=== PATIENT | male | born 1950 | race African-American/Black ===

== ENCOUNTER 2016-09-23 08:08 | Inpatient (IN) | payer MEDICARE, OTHER ==
[~2016-09-23] VITALS: Ht 193 cm; Wt 91.7 kg
[~2016-09-23 08:08] MED LIST: AMLO-511 PO; ASPI-556 PO; ATOR20TA86 PO; LISI-662 PO; METO25 PO
[2016-09-23] MEDS ORDERED: ASPIRIN 81 MG CHEWABLE TABLET PO ONE (08:45)
[2016-09-23 08:49] LABS: HEMATOCRIT 37.2 % (41-53); HEMOGLOBIN 12.3 g/dL (13.5-17.5); MEAN CORPUSCULAR HEMOGLOBIN 26.9 pg (26.0-34.0); MEAN CORPUSCULAR HGB CONC 33.1 G/dL (31.0-37.0); MEAN CORPUSCULAR VOLUME 81 fL (80-100); PLATELET COUNT (AUTO) 133 K/uL (150-450); RED BLOOD CELL COUNT(AUTO) 4.57 MIL/uL (4.50-5.90); WHITE BLOOD COUNT (AUTO) 2.8 K/uL (4.5-11.0)
[2016-09-23 08:55] LABS: ANION GAP 8 mmol/L (8-16); CALCIUM, TOTAL 8.8 mg/dL (8.8-10.5); CARBON DIOXIDE 27 mmol/L (22-29); CHLORIDE 106 mmol/L (98-107); CREATININE 1.25 mg/dL (0.60-1.30); GLOMERULAR FILTR. RATE CALC > 60 mL/min (>60); POTASSIUM 3.9 mmol/L (3.5-5.1); SODIUM SERUM 141 mmol/L (136-145); UREA NITROGEN, BLOOD 16 mg/dL (7-18)
[2016-09-23 09:12] LABS: BAND NEUTROPHILS % (MANUAL) 2 % (1-5); LYMPHOCYTES % (MANUAL) 42 % (22-44); REACTIVE LYMPHOCYTES 4 % (0-0); TOTAL CELLS COUNTED 100
[2016-09-23 09:14] LABS: B-TYPE NATRIURETIC PEPTIDE 42 pg/mL (0-100)
[2016-09-23] MEDS ORDERED: NITROGLYCERIN 0.4 MG SUBLINGUAL TABLET #25 SL ONE (09:15)
[2016-09-23] MEDS ORDERED: NITROGLYCERIN 2% (1 GM=INCH) PACKET TP ONE (09:15)
[2016-09-23 09:19] LABS: ALANINE AMINOTRANSFERASE 103 U/L (12-78); ALBUMIN 3.5 g/dL (3.4-5.0); ASPARTATE AMINOTRANSFERASE 72 U/L (15-37); BILIRUBIN,TOTAL 0.5 mg/dL (0.1-1.0); CREATINE KINASE MB 4.7 ng/mL (0-5); CREATINE KINASE, TOTAL 379 U/L (39-308)
[2016-09-23 09:23] LABS: PROTHROMBIN TIME 10.9 SEC (9.4-11.6)
[2016-09-23 10:06] LABS: APPEARANCE,URINE CLEAR (CLEAR); GLUCOSE, URINE (UA) NEGATIVE (NEGATIVE); KETONES,URINE NEGATIVE (NEGATIVE); LEUKOCYTE ESTERASE ,URINE NEGATIVE (NEGATIVE); OCCULT BLOOD,URINE NEGATIVE (NEGATIVE); PH,URINE 6.5 (5.0-8.0); PROTEIN,URINE NEGATIVE (NEGATIVE)
[2016-09-23 10:07] LABS: ADD UA MICROSCOPIC NO
[2016-09-23] MEDS ORDERED: MORPHINE SULFATE 4 MG/ML SYRINGE IVP ONE (10:15)
[2016-09-23] MEDS ORDERED: ONDANSETRON HCL 4 MG/2 ML VIAL IVP ONE (10:15)
[2016-09-23] MEDS ORDERED: ONDANSETRON HCL 4 MG/2 ML VIAL IVP PRN (10:45)
[2016-09-23] MEDS ORDERED: IPRATROPIUM BROMIDE 0.5 MG/2.5 ML NEB SOLUTION NEB PRN (10:45)
[2016-09-23] MEDS ORDERED: ZOLPIDEM TARTRATE 5 MG TABLET PO PRN (10:45)
[2016-09-23] MEDS ORDERED: ALBUTEROL SULFATE 2.5 MG/0.5 ML NEB SOLUTION NEB PRN (10:45)
[2016-09-23] MEDS ORDERED: BISACODYL 10 MG RECTAL RECTAL SUPPOSITORY PR PRN (10:45)
[2016-09-23] MEDS ORDERED: ACETAMINOPHEN 325 MG TABLET PO PRN (10:45)
[2016-09-23] MEDS ORDERED: MAGNESIUM HYDROXIDE SUSPENSION 30 ML UDCUP PO PRN (10:45)
[2016-09-23 11:18] VITALS: BP 153/95
[2016-09-23] MEDS: LISINOPRIL 20 MG TABLET PO SCH (11:28)
[2016-09-23] MEDS: METOPROLOL TARTRATE 25 MG TABLET PO SCH ×2 (11:29→21:20)
[2016-09-23] MEDS: NITROGLYCERIN 2% (1 GM=INCH) PACKET TP SCH ×3 (13:43→23:09)
[2016-09-23 16:01] VITALS: BP 146/79
[2016-09-23] MEDS: MORPHINE SULFATE 2 MG/ML SYRINGE IVP PRN ×2 (17:41→22:00)
[2016-09-23 20:31] VITALS: BP 147/88
[2016-09-23] MEDS: HEPARIN SODIUM,PORCINE 5,000 UNITS/ML VIAL SQ SCH (21:19)
[2016-09-23] MEDS: ATORVASTATIN CALCIUM 20 MG TABLET PO SCH (21:20)
[2016-09-23 23:17] VITALS: BP 142/82
[2016-09-24 03:47] VITALS: BP 141/78
[2016-09-24] MEDS: NITROGLYCERIN 2% (1 GM=INCH) PACKET TP SCH ×3 (05:19→18:11)
[2016-09-24] MEDS: MORPHINE SULFATE 2 MG/ML SYRINGE IVP PRN (07:01)
[2016-09-24 07:20] VITALS: BP 136/75
[2016-09-24 07:44] LABS: HEMATOCRIT 37.4 % (41-53); HEMOGLOBIN 12.4 g/dL (13.5-17.5); MEAN CORPUSCULAR HGB CONC 33.1 G/dL (31.0-37.0); MEAN CORPUSCULAR VOLUME 81 fL (80-100); PLATELET COUNT (AUTO) 138 K/uL (150-450); RED CELL DISTRIBUTION WIDTH 13.9 % (11.5-14.5); WHITE BLOOD COUNT (AUTO) 2.8 K/uL (4.5-11.0)
[2016-09-24 08:06] LABS: ALANINE AMINOTRANSFERASE 98 U/L (12-78); ALBUMIN 3.2 g/dL (3.4-5.0); ANION GAP 7 mmol/L (8-16); ASPARTATE AMINOTRANSFERASE 67 U/L (15-37); BILIRUBIN,TOTAL 0.5 mg/dL (0.1-1.0); CALCIUM, TOTAL 9.1 mg/dL (8.8-10.5); CARBON DIOXIDE 27 mmol/L (22-29); CHLORIDE 105 mmol/L (98-107); CHOL/HDL RATIO 1.9 (4.2-7.3); CREATININE 1.27 mg/dL (0.60-1.30); GLOMERULAR FILTR. RATE CALC > 60 mL/min (>60); PHOSPHORUS 3.9 mg/dL (2.5-4.9); POTASSIUM 4.4 mmol/L (3.5-5.1); SODIUM SERUM 139 mmol/L (136-145); THYROID STIMULATING HORMONE 1.77 uIU/mL (0.36-3.74); TOTAL PROTEIN, SERUM 6.7 g/dL (6.4-8.2); UREA NITROGEN, BLOOD 16 mg/dL (7-18)
[2016-09-24] MEDS: AmLODIPine BESYLATE 5 MG TABLET PO SCH (08:22)
[2016-09-24] MEDS: ASPIRIN 81 MG EC TABLET PO SCH (08:22)
[2016-09-24] MEDS: METOPROLOL TARTRATE 25 MG TABLET PO SCH ×2 (08:22→20:07)
[2016-09-24] MEDS: PANTOPRAZOLE SODIUM 40 MG DR TABLET PO SCH (08:22)
[2016-09-24] MEDS: HEPARIN SODIUM,PORCINE 5,000 UNITS/ML VIAL SQ SCH ×2 (08:22→20:08)
[2016-09-24] MEDS: LISINOPRIL 20 MG TABLET PO SCH (09:32)
[2016-09-24 09:38] LABS: BAND NEUTROPHILS % (MANUAL) 2 % (1-5); LYMPHOCYTES % (MANUAL) 75 % (22-44); TOTAL CELLS COUNTED 100
[2016-09-24 09:39] LABS: RBC MORPHOLOGY COMMENT NORMAL RBC MORPH
[2016-09-24 11:22] VITALS: BP 133/75
[2016-09-24] MEDS: OxyCODONE HCL/ACETAMINOPHEN 5-325 MG TABLET PO PRN ×2 (11:45→20:07)
[2016-09-24 15:33] VITALS: BP 146/74
[2016-09-24 19:36] VITALS: BP 138/79
[2016-09-24] MEDS: ATORVASTATIN CALCIUM 20 MG TABLET PO SCH (20:07)
[2016-09-24 23:44] VITALS: BP 143/79
[2016-09-25] VITALS (8 sets, daily range): BP systolic 138–173; BP diastolic 63–99
[2016-09-25] MEDS: NITROGLYCERIN 2% (1 GM=INCH) PACKET TP SCH ×4 (00:04→19:00)
[2016-09-25] MEDS: OxyCODONE HCL/ACETAMINOPHEN 5-325 MG TABLET PO PRN ×2 (08:10→15:07)
[2016-09-25 08:29] LABS: HEPATITIS Bs ANTIGEN SCREEN P Negative (Negative); HEPATITIS C AB SCREEN >11.0 s/co ratio (0.0-0.9)
[2016-09-25] MEDS ORDERED: HEPARIN SODIUM 1000 UNITS/NS 1,000 ML ONE (08:34)
[2016-09-25] MEDS ORDERED: LIDOCAINE HCL/PF 1% 30 ML VIAL ONE (08:34)
[2016-09-25] MEDS ORDERED: IOHEXOL 300 MG/ML 150 ML VIAL ONE (08:34)
[2016-09-25] MEDS: ASPIRIN 81 MG EC TABLET PO SCH (09:00)
[2016-09-25] MEDS: HEPARIN SODIUM,PORCINE 5,000 UNITS/ML VIAL SQ SCH (09:00)
[2016-09-25] MEDS ORDERED: NITROGLYCERIN 50 MG/D5% WATER 250 ML ONE (09:07)
[2016-09-25] MEDS ORDERED: VERAPAMIL HCL 2.5 MG/ML 2 ML VIAL ONE (09:07)
[2016-09-25] MEDS ORDERED: FentaNYL CITRATE-PF 100 MCG/2 ML VIAL ONE (09:37)
[2016-09-25] MEDS ORDERED: MIDAZOLAM HCL 2 MG/2 ML VIAL ONE (09:37)
[2016-09-25] MEDS ORDERED: HEPARIN SODIUM 1000 UNITS/NS 1,000 ML IARTER ONE (09:53)
[2016-09-25] MEDS ORDERED: SODIUM CHLORIDE 0.9% 500 ML IV ONE (09:53)
[2016-09-25] MEDS ORDERED: FentaNYL CITRATE-PF 100 MCG/2 ML VIAL IVP ONE (10:00)
[2016-09-25] MEDS ORDERED: NITROGLYCERIN/D5W 50 MG/250 ML IV BOTTLE IARTER ONE (10:00)
[2016-09-25] MEDS ORDERED: MIDAZOLAM HCL 2 MG/2 ML VIAL IVP ONE (10:00)
[2016-09-25] MEDS ORDERED: HEPARIN SODIUM,PORCINE 5,000 UNITS/ML VIAL IVP ONE (10:00)
[2016-09-25] MEDS ORDERED: VERAPAMIL HCL 2.5 MG/ML 2 ML VIAL IARTER ONE (10:00)
[2016-09-25] MEDS ORDERED: IOHEXOL 300 MG/ML 150 ML VIAL IARTER ONE (10:00)
[2016-09-25] MEDS ORDERED: LIDOCAINE HCL/PF 1% 30 ML VIAL INJ ONE (10:15)
[2016-09-25] MEDS: AmLODIPine BESYLATE 5 MG TABLET PO SCH (11:15)
[2016-09-25] MEDS: PANTOPRAZOLE SODIUM 40 MG DR TABLET PO SCH (11:15)
[2016-09-25] MEDS: LISINOPRIL 20 MG TABLET PO SCH (11:15)
[2016-09-25] MEDS: METOPROLOL TARTRATE 25 MG TABLET PO SCH (11:16)
== END 2016-09-25 19:45 | disposition home or self-care (01) | DRG 287 ==
LOC: EMS 08:10 → 5S 09:37
PROVIDERS: ADMIT Internal Medicine; ATTEND Internal Medicine
PROC: 4A023N7 Measurement of Cardiac Sampling and Pressure, Left Heart, Percutaneous Approach (ICD-10-PCS; principal; 2016-09-25)
PROC: B2111ZZ Fluoroscopy of Multiple Coronary Arteries using Low Osmolar Contrast (ICD-10-PCS; 2016-09-25)
PROC: B2151ZZ Fluoroscopy of Left Heart using Low Osmolar Contrast (ICD-10-PCS; 2016-09-25)
DX: I25.10 Atherosclerotic heart disease of native coronary artery without angina pectoris (principal); I11.9 Hypertensive heart disease without heart failure; J44.9 Chronic obstructive pulmonary disease, unspecified; E78.5 Hyperlipidemia, unspecified; F17.210 Nicotine dependence, cigarettes, uncomplicated; F32.9 Major depressive disorder, single episode, unspecified; B19.20 Unspecified viral hepatitis C without hepatic coma; Z90.49 Acquired absence of other specified parts of digestive tract; Z71.6 Tobacco abuse counseling; Z88.0 Allergy status to penicillin; Z79.82 Long term (current) use of aspirin; Z79.899 Other long term (current) drug therapy; Z86.718 Personal history of other venous thrombosis and embolism
CPT/HCPCS: 80074; 82306; 83735; 84100; 84443; 93005; 96374; 96375; 99285; J1644; J2250; J2270; J2405; J3010; J3490; Q9967

== ENCOUNTER 2016-09-26 20:18 | Emergency (ER) | payer MEDICARE, OTHER ==
[~2016-09-26] VITALS: Ht 193 cm; Wt 91.5 kg
[2016-09-26 20:50] LABS: BASOPHILS % (AUTO) 0.5 % (0.0-2.0); EOSINOPHILS % (AUTO) 2.3 % (1.0-6.0); HEMATOCRIT 38.6 % (41-53); HEMOGLOBIN 12.8 g/dL (13.5-17.5); LYMPHOCYTES # (AUTO) 1.3 K/uL (1.0-4.8); LYMPHOCYTES % (AUTO) 37.6 % (22.0-44.0); MEAN CORPUSCULAR HGB CONC 33.3 G/dL (31.0-37.0); MEAN CORPUSCULAR VOLUME 81 fL (80-100); MONOCYTES # (AUTO) 0.6 K/uL (0.1-1.0); MONOCYTES % (AUTO) 16.5 % (2.0-9.0); NEUTROPHILS # (AUTO) 1.4 K/uL (1.8-7.7); NEUTROPHILS % (AUTO) 43.1 % (40.0-70.0); PLATELET COUNT (AUTO) 146 K/uL (150-450); RED BLOOD CELL COUNT(AUTO) 4.76 MIL/uL (4.50-5.90); RED CELL DISTRIBUTION WIDTH 13.7 % (11.5-14.5); WHITE BLOOD COUNT (AUTO) 3.4 K/uL (4.5-11.0)
[2016-09-26 21:11] LABS: ANION GAP 8 mmol/L (8-16); CALCIUM, TOTAL 9.6 mg/dL (8.8-10.5); CARBON DIOXIDE 28 mmol/L (22-29); CHLORIDE 104 mmol/L (98-107); CREATININE 1.42 mg/dL (0.60-1.30); GLOMERULAR FILTR. RATE CALC 60 mL/min (>60); POTASSIUM 4.1 mmol/L (3.5-5.1); SODIUM SERUM 140 mmol/L (136-145); UREA NITROGEN, BLOOD 19 mg/dL (7-18)
[2016-09-26 21:36] LABS: ALANINE AMINOTRANSFERASE 111 U/L (12-78); ALBUMIN 3.9 g/dL (3.4-5.0); ASPARTATE AMINOTRANSFERASE 69 U/L (15-37); BILIRUBIN,TOTAL 0.4 mg/dL (0.1-1.0); CREATINE KINASE, TOTAL 323 U/L (39-308); TOTAL PROTEIN, SERUM 7.7 g/dL (6.4-8.2)
[2016-09-26 22:00] LABS: B-TYPE NATRIURETIC PEPTIDE 44 pg/mL (0-100)
[2016-09-26 22:02] LABS: CREATINE KINASE MB 3.9 ng/mL (0-5)
[2016-09-26 22:07] LABS: RBC MORPHOLOGY COMMENT NORMAL RBC MORPH
[2016-09-26 22:36] LABS: PROTHROMBIN TIME 10.6 SEC (9.4-11.6)
[2016-09-26 22:57] LABS: APPEARANCE,URINE CLEAR (CLEAR); GLUCOSE, URINE (UA) NEGATIVE (NEGATIVE); KETONES,URINE NEGATIVE (NEGATIVE); LEUKOCYTE ESTERASE ,URINE NEGATIVE (NEGATIVE); OCCULT BLOOD,URINE NEGATIVE (NEGATIVE); PH,URINE 6.5 (5.0-8.0); PROTEIN,URINE NEGATIVE (NEGATIVE)
[2016-09-26 23:18] LABS: ADD UA MICROSCOPIC NO
[2016-09-26] MEDS ORDERED: NITROGLYCERIN 2% (1 GM=INCH) PACKET TP ONE (23:30)
[2016-09-26] MEDS ORDERED: MORPHINE SULFATE 4 MG/ML SYRINGE IVP ONE (23:30)
[2016-09-26] MEDS ORDERED: ONDANSETRON HCL 4 MG/2 ML VIAL IVP ONE (23:30)
[2016-09-27 01:15] VITALS: BP 155/74
== END 2016-09-27 02:04 | disposition home or self-care (01) ==
LOC: EMS 20:20
DX: R07.89 Other chest pain (principal); I10 Essential (primary) hypertension; J44.9 Chronic obstructive pulmonary disease, unspecified; F17.210 Nicotine dependence, cigarettes, uncomplicated; Z88.0 Allergy status to penicillin
CPT/HCPCS: 93005; 96374; 96375; 99285; J2270; J2405

== ENCOUNTER 2016-10-02 13:01 | Emergency (ER) | payer MEDICARE, OTHER ==
[~2016-10-02] VITALS: Ht 193 cm; Wt 50.0 kg
[2016-10-02 13:56] LABS: BASOPHILS % (AUTO) 1.8 % (0.0-2.0); EOSINOPHILS % (AUTO) 2.6 % (1.0-6.0); HEMATOCRIT 37.2 % (41-53); HEMOGLOBIN 12.3 g/dL (13.5-17.5); LYMPHOCYTES # (AUTO) 1.5 K/uL (1.0-4.8); LYMPHOCYTES % (AUTO) 46.5 % (22.0-44.0); MEAN CORPUSCULAR HEMOGLOBIN 27.2 pg (26.0-34.0); MEAN CORPUSCULAR HGB CONC 33.2 G/dL (31.0-37.0); MEAN CORPUSCULAR VOLUME 82 fL (80-100); MONOCYTES # (AUTO) 0.6 K/uL (0.1-1.0); MONOCYTES % (AUTO) 19.2 % (2.0-9.0); NEUTROPHILS % (AUTO) 29.9 % (40.0-70.0); PLATELET COUNT (AUTO) 154 K/uL (150-450); RED BLOOD CELL COUNT(AUTO) 4.54 MIL/uL (4.50-5.90); RED CELL DISTRIBUTION WIDTH 14.2 % (11.5-14.5); WHITE BLOOD COUNT (AUTO) 3.2 K/uL (4.5-11.0)
[2016-10-02 14:11] LABS: ANION GAP 9 mmol/L (8-16); CALCIUM, TOTAL 8.9 mg/dL (8.8-10.5); CARBON DIOXIDE 28 mmol/L (22-29); CHLORIDE 105 mmol/L (98-107); CREATININE 1.14 mg/dL (0.60-1.30); GLOMERULAR FILTR. RATE CALC > 60 mL/min (>60); POTASSIUM 4.1 mmol/L (3.5-5.1); SODIUM SERUM 142 mmol/L (136-145); UREA NITROGEN, BLOOD 21 mg/dL (7-18)
[2016-10-02 14:17] LABS: ALANINE AMINOTRANSFERASE 105 U/L (12-78); ALBUMIN 3.7 g/dL (3.4-5.0); ASPARTATE AMINOTRANSFERASE 55 U/L (15-37); BILIRUBIN,TOTAL 0.5 mg/dL (0.1-1.0); TOTAL PROTEIN, SERUM 7.4 g/dL (6.4-8.2)
[2016-10-02] MEDS ORDERED: SODIUM CHLORIDE 0.9% 100 ML ONE (15:47)
[2016-10-02] MEDS ORDERED: IOVERSOL 350 MG/ML 100 ML VIAL ONE (15:47)
[2016-10-02] MEDS ORDERED: NITROGLYCERIN 0.4 MG SUBLINGUAL TABLET #25 SL ONE (16:30)
[2016-10-02 19:05] VITALS: BP 147/79
== END 2016-10-02 19:18 | disposition home or self-care (01) ==
LOC: EMS 13:03
DX: R07.9 Chest pain, unspecified (principal); M25.531 Pain in right wrist; R74.8 Abnormal levels of other serum enzymes; J44.9 Chronic obstructive pulmonary disease, unspecified; I10 Essential (primary) hypertension; F17.210 Nicotine dependence, cigarettes, uncomplicated; Z88.0 Allergy status to penicillin; Z79.82 Long term (current) use of aspirin
CPT/HCPCS: 36415; 71010; 71275; 80053; 84484; 85025; 85379; 93005; 99285; J7050; Q9967

== ENCOUNTER 2018-06-20 15:58 | Inpatient (IN) | payer MEDICARE, OTHER ==
[~2018-06-20] VITALS: Ht 185.4 cm; Wt 80.5 kg
[2018-06-20 16:46] LABS: EOSINOPHILS % (AUTO) 0.8 % (1.0-6.0); HEMATOCRIT 44.2 % (41-53); HEMOGLOBIN 14.8 g/dL (13.5-17.5); LYMPHOCYTES # (AUTO) 1.2 K/uL (1.0-4.8); LYMPHOCYTES % (AUTO) 41.9 % (22.0-44.0); MEAN CORPUSCULAR HEMOGLOBIN 27.2 pg (26.0-34.0); MEAN CORPUSCULAR HGB CONC 33.4 G/dL (31.0-37.0); MEAN CORPUSCULAR VOLUME 81 fL (80-100); MONOCYTES # (AUTO) 0.5 K/uL (0.1-1.0); MONOCYTES % (AUTO) 17.3 % (2.0-9.0); NEUTROPHILS # (AUTO) 1.1 K/uL (1.8-7.7); PLATELET COUNT (AUTO) 133 K/uL (150-450); RED BLOOD CELL COUNT(AUTO) 5.43 MIL/uL (4.50-5.90); RED CELL DISTRIBUTION WIDTH 14.5 % (11.5-14.5)
[2018-06-20] MEDS ORDERED: AmLODIPine BESYLATE 5 MG TABLET PO ONE (17:00)
[2018-06-20 17:01] LABS: ANION GAP 5 mmol/L (8-16); CALCIUM, TOTAL 9.1 mg/dL (8.8-10.5); CARBON DIOXIDE 31 mmol/L (22-29); CHLORIDE 102 mmol/L (98-107); CREATININE 1.31 mg/dL (0.60-1.30); GLOMERULAR FILTR. RATE CALC > 60 mL/min (>60); GLUCOSE,RANDOM 94 mg/dL (70-110); SODIUM SERUM 138 mmol/L (136-145); UREA NITROGEN, BLOOD 13 mg/dL (7-18)
[2018-06-20] MEDS ORDERED: SODIUM CHLORIDE 0.9% 100 ML ONE (17:03)
[2018-06-20] MEDS ORDERED: IOVERSOL 320 MG/ML 100 ML VIAL ONE (17:03)
[2018-06-20 17:07] LABS: ALANINE AMINOTRANSFERASE 70 U/L (12-78); ALBUMIN 3.6 g/dL (3.4-5.0); ALKALINE PHOSPHATASE 109 U/L (46-116); ASPARTATE AMINOTRANSFERASE 116 U/L (15-37); TOTAL PROTEIN, SERUM 8.5 g/dL (6.4-8.2)
[2018-06-20] MEDS ORDERED: ASPIRIN 325 MG TABLET PO ONE (18:30)
[2018-06-20] MEDS ORDERED: LISINOPRIL 10 MG TABLET PO ONE (19:45)
[2018-06-20] MEDS ORDERED: 0.9% SODIUM CHLORIDE 10 ML SYRINGE IVP PRN ×2 (20:15→23:15)
[2018-06-20] MEDS ORDERED: ACETAMINOPHEN 325 MG TABLET PO PRN ×3 (20:15→23:15)
[2018-06-20] MEDS ORDERED: HydrALAZINE HCL 20 MG/ML VIAL IVP ONE ×2 (20:15→21:30)
[2018-06-20] MEDS ORDERED: ONDANSETRON HCL 4 MG/2 ML VIAL IVP PRN ×3 (20:15→23:15)
[2018-06-20] MEDS ORDERED: MORPHINE SULFATE 2 MG/ML SYRINGE IVP PRN (21:00)
[2018-06-20] MEDS ORDERED: NITROGLYCERIN 2% (1 GM=INCH) PACKET TP PRN (21:00)
[2018-06-20] MEDS ORDERED: NITROGLYCERIN 0.4 MG SUBLINGUAL TABLET #25 SL PRN (21:00)
[2018-06-20] MEDS ORDERED: ASPIRIN 325 MG TABLET PO SCH (21:00)
[2018-06-20] MEDS ORDERED: ZOLPIDEM TARTRATE 10 MG TABLET PO PRN (21:00)
[2018-06-20] MEDS: DOCUSATE SODIUM 100 MG CAPSULE PO SCH (21:39)
[2018-06-20] MEDS ORDERED: LABETALOL HCL 5 MG/ML 20 ML VIAL IVP ONE (22:00)
[2018-06-20] MEDS: METOPROLOL TARTRATE 25 MG TABLET PO SCH (22:54)
[2018-06-20] MEDS: ATORVASTATIN CALCIUM 20 MG TABLET PO SCH (22:54)
[2018-06-20 23:01] VITALS: BP 159/86
[2018-06-20] MEDS ORDERED: MAGNESIUM HYDROXIDE SUSPENSION 30 ML UDCUP PO PRN (23:15)
[2018-06-20] MEDS ORDERED: DOCUSATE SODIUM 100 MG CAPSULE PO SCH (23:15)
[2018-06-20] MEDS ORDERED: OxyCODONE HCL/ACETAMINOPHEN 5-325 MG TABLET PO PRN ×2 (23:15)
[2018-06-21] VITALS (9 sets, daily range): BP systolic 142–178; BP diastolic 82–120
[2018-06-21] MEDS ORDERED: HydrALAZINE HCL 25 MG TABLET PO PRN (00:15)
[2018-06-21 06:51] LABS: BASOPHILS % (AUTO) 0.4 % (0.0-2.0); EOSINOPHILS % (AUTO) 2.9 % (1.0-6.0); HEMATOCRIT 41.8 % (41-53); HEMOGLOBIN 14.2 g/dL (13.5-17.5); LYMPHOCYTES # (AUTO) 1.1 K/uL (1.0-4.8); LYMPHOCYTES % (AUTO) 42.5 % (22.0-44.0); MEAN CORPUSCULAR HEMOGLOBIN 27.7 pg (26.0-34.0); MEAN CORPUSCULAR HGB CONC 33.9 G/dL (31.0-37.0); MEAN CORPUSCULAR VOLUME 82 fL (80-100); MONOCYTES # (AUTO) 0.4 K/uL (0.1-1.0); MONOCYTES % (AUTO) 16.1 % (2.0-9.0); NEUTROPHILS % (AUTO) 38.1 % (40.0-70.0); PLATELET COUNT (AUTO) 127 K/uL (150-450); RED BLOOD CELL COUNT(AUTO) 5.12 MIL/uL (4.50-5.90); RED CELL DISTRIBUTION WIDTH 14.6 % (11.5-14.5)
[2018-06-21 07:14] LABS: BILIRUBIN,TOTAL 0.9 mg/dL (0.1-1.0); CALCIUM, TOTAL 8.8 mg/dL (8.8-10.5); CHOL/HDL RATIO 2.3 (4.2-7.3); CREATININE 1.54 mg/dL (0.60-1.30); POTASSIUM 3.1 mmol/L (3.5-5.1)
[2018-06-21] MEDS: METOPROLOL TARTRATE 25 MG TABLET PO SCH ×2 (08:40→19:49)
[2018-06-21] MEDS: PANTOPRAZOLE SODIUM 40 MG/VIAL IVP SCH (08:41)
[2018-06-21] MEDS: AmLODIPine BESYLATE 5 MG TABLET PO SCH (08:41)
[2018-06-21] MEDS: DOCUSATE SODIUM 100 MG CAPSULE PO SCH (08:41)
[2018-06-21] MEDS ORDERED: ASPIRIN 325 MG TABLET PO SCH (09:00)
[2018-06-21] MEDS ORDERED: LISINOPRIL 20 MG TABLET PO SCH (09:00)
[2018-06-21] MEDS ORDERED: MAGNESIUM OXIDE 400 MG TABLET PO PRN (09:30)
[2018-06-21] MEDS ORDERED: MAGNESIUM SULFATE 2 GM/WATER 50 ML IV PRN (09:30)
[2018-06-21] MEDS ORDERED: MAGNESIUM SULFATE 4 GM/WATER 100 ML IV PRN (09:30)
[2018-06-21] MEDS ORDERED: POTASSIUM CHL 10 MEQ/WATER 50 ML IV PRN (09:30)
[2018-06-21] MEDS ORDERED: POTASSIUM CHLORIDE 20 MEQ ER TABLET PO PRN (09:30)
[2018-06-21] MEDS: MULTIVITAMINS WITH MINERALS, THERAPEUTIC TABLET PO SCH (09:58)
[2018-06-21 10:09] LABS: MAGNESIUM 1.8 mg/dL (1.80-2.40)
[2018-06-21 12:23] LABS: AMPHET/METH SCREEN,URINE NEGATIVE (NEGATIVE); BARBITURATE SCREEN, URINE NEGATIVE (NEGATIVE); BENZODIAZEPINES SCREEN,URINE NEGATIVE (NEGATIVE); CANNABINOID SCREEN,URINE NEGATIVE (NEGATIVE); COCAINE SCREEN,URINE POSITIVE (NEGATIVE); METHADONE SCREEN, URINE NEGATIVE (NEGATIVE); OPIATE SCREEN,URINE NEGATIVE (NEGATIVE)
[2018-06-21 12:24] LABS: PHENCYCLIDINE SCREEN,URINE NEGATIVE (NEGATIVE)
[2018-06-21] MEDS: ATORVASTATIN CALCIUM 20 MG TABLET PO SCH (19:49)
[2018-06-22 00:04] VITALS: BP 164/97
[2018-06-22 05:13] VITALS: BP 143/97
[2018-06-22 05:39] VITALS: BP 143/97
[2018-06-22 07:45] LABS: CALCIUM, TOTAL 8.8 mg/dL (8.8-10.5); CREATININE 1.61 mg/dL (0.60-1.30); MAGNESIUM 1.7 mg/dL (1.80-2.40); POTASSIUM 3.9 mmol/L (3.5-5.1)
[2018-06-22 07:53] VITALS: BP 164/105
[2018-06-22] MEDS: AmLODIPine BESYLATE 5 MG TABLET PO SCH (08:08)
[2018-06-22] MEDS: MULTIVITAMINS WITH MINERALS, THERAPEUTIC TABLET PO SCH (08:08)
[2018-06-22] MEDS: PANTOPRAZOLE SODIUM 40 MG/VIAL IVP SCH (08:09)
[2018-06-22] MEDS: METOPROLOL TARTRATE 25 MG TABLET PO SCH (08:09)
[2018-06-22] MEDS: DOCUSATE SODIUM 100 MG CAPSULE PO SCH (08:09)
[2018-06-22] MEDS ORDERED: ASPIRIN 325 MG TABLET PO SCH (09:00)
[2018-06-22 11:27] VITALS: BP 137/85
== END 2018-06-22 13:50 | disposition home or self-care (01) | DRG 918 ==
LOC: EMS 15:59 → 5S 20:00
PROVIDERS: ADMIT Internal Medicine; ATTEND Internal Medicine
DX: T40.5X1A Poisoning by cocaine, accidental (unintentional), initial encounter (principal); I24.8 Other forms of acute ischemic heart disease; N17.9 Acute kidney failure, unspecified; F10.10 Alcohol abuse, uncomplicated; I12.9 Hypertensive chronic kidney disease with stage 1 through stage 4 chronic kidney disease, or unspecified chronic kidney disease; J43.9 Emphysema, unspecified; E78.5 Hyperlipidemia, unspecified; N18.3 Chronic kidney disease, stage 3 (moderate); G47.00 Insomnia, unspecified; E78.00 Pure hypercholesterolemia, unspecified; I45.81 Long QT syndrome; D72.819 Decreased white blood cell count, unspecified; Z86.718 Personal history of other venous thrombosis and embolism; Z82.3 Family history of stroke; Z87.891 Personal history of nicotine dependence; Z82.49 Family history of ischemic heart disease and other diseases of the circulatory system; Z79.01 Long term (current) use of anticoagulants; Z88.0 Allergy status to penicillin; Z79.899 Other long term (current) drug therapy; Z79.82 Long term (current) use of aspirin
CPT/HCPCS: 71275; 74175; 80307; 83735; 84132; 93005; 93306; 93970; 96374; 96375; 96376; 99291; C9113; G0378; J0360; J2405; J3490; J7050

== ENCOUNTER 2020-10-25 21:26 | Emergency (ER) | payer MEDICARE, OTHER ==
[~2020-10-25] VITALS: Ht 193 cm; Wt 88.6 kg
[~2020-10-25 21:26] MED LIST changes: +AMLO-257 PO; -AMLO-511 PO; -LISI-662 PO
[2020-10-25] MEDS ORDERED: METOPROLOL TARTRATE 25 MG TABLET PO ONE (23:00)
[2020-10-25] MEDS ORDERED: KETOROLAC TROMETHAMINE 30 MG/ML VIAL IM ONE (23:00)
[2020-10-25] MEDS ORDERED: AmLODIPine BESYLATE 5 MG TABLET PO ONE (23:00)
[2020-10-26] MEDS ORDERED: OxyCODONE HCL 5 MG IR TABLET PO ONE (00:15)
[2020-10-26 02:07] LABS: COVID AG,FIA SOURCE NASOPHARYNGEAL
[2020-10-26] MEDS ORDERED: DOXYCYCLINE HYCLATE 100 MG TABLET PO ONE (02:30)
[2020-10-26 03:20] VITALS: BP 160/91
== END 2020-10-26 03:34 | disposition home or self-care (01) ==
LOC: EMS 21:28
DX: S20.212A Contusion of left front wall of thorax, initial encounter (principal); J18.9 Pneumonia, unspecified organism; J44.9 Chronic obstructive pulmonary disease, unspecified; F32.9 Major depressive disorder, single episode, unspecified; I10 Essential (primary) hypertension; F17.210 Nicotine dependence, cigarettes, uncomplicated; F14.90 Cocaine use, unspecified, uncomplicated; Z20.822 Contact with and (suspected) exposure to COVID-19; Z88.0 Allergy status to penicillin; Z79.82 Long term (current) use of aspirin; W50.0XXA Accidental hit or strike by another person, initial encounter; Y93.89 Activity, other specified; Y92.89 Other specified places as the place of occurrence of the external cause; Y99.8 Other external cause status
CPT/HCPCS: 71046; 71250; 87426; 96372; 99285; J1885; 99284

== ENCOUNTER 2020-12-12 21:06 | Inpatient (IN) | payer MEDICARE, OTHER ==
[~2020-12-12] VITALS: Ht 193 cm; Wt 96.0 kg
[2020-12-12 21:52] LABS: BASOPHILS % (AUTO) 0.9 % (0.0-2.0); EOSINOPHILS % (AUTO) 1.2 % (1.0-6.0); HEMATOCRIT 35.1 % (41-53); HEMOGLOBIN 11.3 g/dL (13.5-17.5); LYMPHOCYTES % (AUTO) 22.5 % (22.0-44.0); MEAN CORPUSCULAR HEMOGLOBIN 26.6 pg (26.0-34.0); MEAN CORPUSCULAR HGB CONC 32.2 G/dL (31.0-37.0); MEAN CORPUSCULAR VOLUME 83 fL (80-100); MONOCYTES # (AUTO) 0.7 K/uL (0.1-1.0); MONOCYTES % (AUTO) 15.4 % (2.0-9.0); NEUTROPHILS # (AUTO) 2.8 K/uL (1.8-7.7); PLATELET COUNT (AUTO) 166 K/uL (150-450); RED BLOOD CELL COUNT(AUTO) 4.25 MIL/uL (4.50-5.90); RED CELL DISTRIBUTION WIDTH 14.3 % (11.5-14.5)
[2020-12-12 22:03] LABS: CALCIUM, TOTAL 8.8 mg/dL (8.8-10.5); CREATININE 2.38 mg/dL (0.60-1.30); POTASSIUM 3.6 mmol/L (3.5-5.1)
[2020-12-12 22:05] LABS: INR 1.1 (0.9-1.1); PROTHROMBIN TIME 11.6 SEC (9.4-11.6)
[2020-12-12 22:22] LABS: ALBUMIN 2.8 g/dL (3.4-5.0); BILIRUBIN,TOTAL 0.8 mg/dL (0.1-1.0)
[2020-12-12] MEDS ORDERED: METOPROLOL TARTRATE 50 MG TABLET PO ONE (23:00)
[2020-12-12] MEDS ORDERED: SODIUM CHLORIDE 0.9% 1,000 ML IV ONE (23:00)
[2020-12-12] MEDS ORDERED: AmLODIPine BESYLATE 5 MG TABLET PO ONE (23:00)
[2020-12-12 23:05] LABS: D-DIMER 0.82 mg/L FEU (0.00-0.50)
[2020-12-12 23:30] LABS: APPEARANCE,URINE CLOUDY (CLEAR); BILIRUBIN,URINE NEGATIVE (NEGATIVE); GLUCOSE, URINE (UA) NEGATIVE (NEGATIVE); KETONES,URINE NEGATIVE (NEGATIVE); LEUKOCYTE ESTERASE ,URINE MODERATE (NEGATIVE); NITRATE,URINE POSITIVE (NEGATIVE); OCCULT BLOOD,URINE TRACE (NEGATIVE); PH,URINE 6.5 (5.0-8.0); PROTEIN,URINE POS 1+ (NEGATIVE)
[2020-12-12 23:46] LABS: BACTERIA,URINE Many /HPF (None Seen); WBC,URINE 51-100 /HPF (0-5)
[2020-12-13] MEDS ORDERED: SODIUM CHLORIDE 0.9% 1,000 ML IV ONE
[2020-12-13] MEDS ORDERED: CefTRIAXone 1 GM/DEXTROSE 50 ML IV ONE
[2020-12-13] MEDS ORDERED: ACETAMINOPHEN 325 MG TABLET PO PRN ×2 (00:15→08:00)
[2020-12-13] MEDS ORDERED: *CLINICAL-LEVOFLOXACIN IVPB DOSING CLINICAL ONE (00:15)
[2020-12-13] MEDS ORDERED: ONDANSETRON HCL 4 MG/2 ML VIAL IVP PRN (00:15)
[2020-12-13] MEDS ORDERED: 0.9% SODIUM CHLORIDE 10 ML SYRINGE IVP PRN (00:15)
[2020-12-13 01:45] LABS: COVID AG,FIA SOURCE NASOPHARYNGEAL
[2020-12-13] MEDS ORDERED: HEPARIN SODIUM,PORCINE 5,000 UNITS/ML VIAL IVP PRN ×2 (01:45)
[2020-12-13] MEDS ORDERED: HEPARIN SODIUM 25000 UNITS/D5W 250 ML IV PRN (01:45)
[2020-12-13] MEDS ORDERED: HEPARIN SODIUM,PORCINE 5,000 UNITS/ML VIAL IVP ONE (01:45)
[2020-12-13] MEDS ORDERED: LEVOFLOXACIN 500 MG/D5% WATER 100 ML IV ONE (02:00)
[2020-12-13] MEDS ORDERED: HydrALAZINE HCL 20 MG/ML VIAL IVP ONE (02:00)
[2020-12-13] MEDS ORDERED: LABETALOL HCL 5 MG/ML 20 ML VIAL IVP ONE (02:00)
[2020-12-13 02:19] LABS: BASOPHILS % (AUTO) 0.7 % (0.0-2.0); EOSINOPHILS % (AUTO) 1.4 % (1.0-6.0); HEMATOCRIT 36.1 % (41-53); HEMOGLOBIN 11.6 g/dL (13.5-17.5); LYMPHOCYTES # (AUTO) 0.8 K/uL (1.0-4.8); MEAN CORPUSCULAR HEMOGLOBIN 26.5 pg (26.0-34.0); MEAN CORPUSCULAR HGB CONC 32.1 G/dL (31.0-37.0); MEAN CORPUSCULAR VOLUME 83 fL (80-100); MONOCYTES # (AUTO) 0.6 K/uL (0.1-1.0); MONOCYTES % (AUTO) 13.7 % (2.0-9.0); NEUTROPHILS # (AUTO) 2.6 K/uL (1.8-7.7); NEUTROPHILS % (AUTO) 65.2 % (40.0-70.0); PLATELET COUNT (AUTO) 170 K/uL (150-450); RED BLOOD CELL COUNT(AUTO) 4.38 MIL/uL (4.50-5.90); RED CELL DISTRIBUTION WIDTH 14.6 % (11.5-14.5)
[2020-12-13 02:46] LABS: INR 1.3 (0.9-1.1); PROTHROMBIN TIME 13.2 SEC (9.4-11.6)
[2020-12-13 07:40] VITALS: BP 174/107
[2020-12-13] MEDS ORDERED: ALBUTEROL SULFATE 2.5 MG/0.5 ML NEB SOLUTION NEB PRN (08:00)
[2020-12-13] MEDS ORDERED: ZOLPIDEM TARTRATE 5 MG TABLET PO PRN (08:00)
[2020-12-13] MEDS ORDERED: OxyCODONE HCL/ACETAMINOPHEN 5-325 MG TABLET PO PRN (08:00)
[2020-12-13] MEDS ORDERED: MAGNESIUM HYDROXIDE SUSPENSION 30 ML UDCUP PO PRN (08:00)
[2020-12-13] MEDS ORDERED: ASPIRIN 81 MG CHEWABLE TABLET PO SCH (09:00)
[2020-12-13] MEDS: AmLODIPine BESYLATE 10 MG TABLET PO SCH (09:07)
[2020-12-13] MEDS: DOCUSATE SODIUM 100 MG CAPSULE PO SCH ×2 (09:07→20:18)
[2020-12-13] MEDS: FAMOTIDINE 20 MG TABLET PO SCH (09:08)
[2020-12-13] MEDS: OxyCODONE HCL/ACETAMINOPHEN 5-325 MG TABLET PO PRN ×2 (09:11→20:16)
[2020-12-13] MEDS: CefTRIAXone 1 GM/DEXTROSE 50 ML IV SCH (10:11)
[2020-12-13 11:08] VITALS: BP 141/68
[2020-12-13] MEDS ORDERED: PENTETATE DTPA TC99M/MCL ISOTOPE 1 EA INJ INJ ONE (11:50)
[2020-12-13] MEDS ORDERED: MAA ALBUMIN AGGREGATED TC99M/UD<10MCL ISOTOPE 1 EA INJ INJ ONE (12:15)
[2020-12-13 16:18] VITALS: BP 142/88
[2020-12-13] MEDS: METOPROLOL TARTRATE 25 MG TABLET PO SCH (20:18)
[2020-12-13] MEDS: HEPARIN SODIUM,PORCINE 5,000 UNITS/ML VIAL SQ SCH (20:19)
[2020-12-13 20:29] VITALS: BP 131/75
[2020-12-13] MEDS ORDERED: ATORVASTATIN CALCIUM 20 MG TABLET PO SCH ×2 (21:00)
[2020-12-14 00:40] VITALS: BP 124/73
[2020-12-14 04:33] VITALS: BP 127/75
[2020-12-14 07:30] VITALS: BP 129/76
[2020-12-14 07:48] LABS: BASOPHILS % (AUTO) 0.5 % (0.0-2.0); EOSINOPHILS % (AUTO) 1.4 % (1.0-6.0); HEMATOCRIT 32.7 % (41-53); HEMOGLOBIN 10.8 g/dL (13.5-17.5); LYMPHOCYTES # (AUTO) 0.7 K/uL (1.0-4.8); LYMPHOCYTES % (AUTO) 21.5 % (22.0-44.0); MEAN CORPUSCULAR HEMOGLOBIN 27.2 pg (26.0-34.0); MEAN CORPUSCULAR HGB CONC 33.1 G/dL (31.0-37.0); MEAN CORPUSCULAR VOLUME 82 fL (80-100); MONOCYTES # (AUTO) 0.6 K/uL (0.1-1.0); MONOCYTES % (AUTO) 16.7 % (2.0-9.0); NEUTROPHILS # (AUTO) 2.1 K/uL (1.8-7.7); NEUTROPHILS % (AUTO) 59.9 % (40.0-70.0); PLATELET COUNT (AUTO) 162 K/uL (150-450); RED BLOOD CELL COUNT(AUTO) 3.99 MIL/uL (4.50-5.90); RED CELL DISTRIBUTION WIDTH 14.1 % (11.5-14.5)
[2020-12-14] MEDS: FAMOTIDINE 20 MG TABLET PO SCH (08:10)
[2020-12-14] MEDS: AmLODIPine BESYLATE 10 MG TABLET PO SCH (08:10)
[2020-12-14] MEDS: METOPROLOL TARTRATE 25 MG TABLET PO SCH (08:10)
[2020-12-14] MEDS: DOCUSATE SODIUM 100 MG CAPSULE PO SCH (08:10)
[2020-12-14] MEDS: HEPARIN SODIUM,PORCINE 5,000 UNITS/ML VIAL SQ SCH (08:11)
[2020-12-14] MEDS: CefTRIAXone 1 GM/DEXTROSE 50 ML IV SCH (08:14)
[2020-12-14] MEDS ORDERED: SODIUM CHLORIDE 0.9% 250 ML IV ONE (08:19)
[2020-12-14] MEDS ORDERED: AmLODIPine BESYLATE 5 MG TABLET PO SCH (09:00)
[2020-12-14] MEDS ORDERED: ASPIRIN 81 MG DR TABLET PO SCH (09:00)
[2020-12-14 11:28] VITALS: BP 135/76
[2020-12-14] MEDS ORDERED: LEVO250T75 PO (12:48)
== END 2020-12-14 16:35 | disposition home or self-care (01) | DRG 313 ==
LOC: EMS 21:06 → 5S 12-13 02:19
PROVIDERS: ADMIT Internal Medicine; ATTEND Internal Medicine
DX: R07.89 Other chest pain (principal); N39.0 Urinary tract infection, site not specified; I82.502 Chronic embolism and thrombosis of unspecified deep veins of left lower extremity; N17.9 Acute kidney failure, unspecified; F14.90 Cocaine use, unspecified, uncomplicated; J44.9 Chronic obstructive pulmonary disease, unspecified; I12.9 Hypertensive chronic kidney disease with stage 1 through stage 4 chronic kidney disease, or unspecified chronic kidney disease; N18.2 Chronic kidney disease, stage 2 (mild); Z20.822 Contact with and (suspected) exposure to COVID-19; F20.9 Schizophrenia, unspecified; F17.210 Nicotine dependence, cigarettes, uncomplicated; F32.A Depression, unspecified; Z91.19 Patient's noncompliance with other medical treatment and regimen; Z59.00 Homelessness unspecified; Z88.0 Allergy status to penicillin
CPT/HCPCS: 71045; 78582; 80053; 81001; 82550; 83880; 84484; 85025; 85379; 85610; 85730; 87077; 87086; 87186; 93005; 93306; 93971; 97162; 99285; A9539; A9540; G0480; J0696; J1644; J1956; J3490; J7030; J7050; 36415-L1; 36415-TC

== ENCOUNTER 2021-02-23 14:44 | Emergency (ER) | payer MEDICARE, OTHER ==
[~2021-02-23] VITALS: Ht 182.9 cm; Wt 68.2 kg
[~2021-02-23 14:44] MED LIST changes: +LEVO250T75 PO
[2021-02-23] MEDS ORDERED: AZIT-84 PO (17:19)
[2021-02-23] MEDS ORDERED: BENZ-70 PO (17:19)
[2021-02-23 18:50] VITALS: BP 172/111
[2021-02-23] MEDS ORDERED: CloNIDine HCL 0.1 MG TABLET PO ONE (19:00)
[2021-02-23] MEDS ORDERED: TraMADol HCL 50 MG TABLET PO ONE (19:45)
== END 2021-02-23 19:50 | disposition home or self-care (01) ==
LOC: EMS 14:51
DX: U07.1 COVID-19 (principal); I10 Essential (primary) hypertension; J44.9 Chronic obstructive pulmonary disease, unspecified; F17.210 Nicotine dependence, cigarettes, uncomplicated; F14.90 Cocaine use, unspecified, uncomplicated; Z88.0 Allergy status to penicillin; Z79.82 Long term (current) use of aspirin; Z79.899 Other long term (current) drug therapy
CPT/HCPCS: 71045; 99283

== ENCOUNTER 2022-04-19 13:56 | Emergency (ER) | payer MEDICARE, OTHER ==
[~2022-04-19] VITALS: Ht 190.5 cm; Wt 80.0 kg
[~2022-04-19 13:56] MED LIST changes: +APIX2.5T PO; -ASPI-556 PO; -LEVO250T75 PO; +LOSA-381 PO; -METO25 PO
[2022-04-19 14:49] LABS: BASOPHILS % (AUTO) 0.7 % (0.0-2.0); EOSINOPHILS % (AUTO) 1.7 % (1.0-6.0); HEMATOCRIT 42.4 % (41-53); HEMOGLOBIN 13.6 g/dL (13.5-17.5); LYMPHOCYTES # (AUTO) 1.1 K/uL (1.0-4.8); LYMPHOCYTES % (AUTO) 30.1 % (22.0-44.0); MEAN CORPUSCULAR HEMOGLOBIN 26.1 pg (26.0-34.0); MEAN CORPUSCULAR HGB CONC 32.1 G/dL (31.0-37.0); MEAN CORPUSCULAR VOLUME 81 fL (80-100); MONOCYTES # (AUTO) 0.7 K/uL (0.1-1.0); MONOCYTES % (AUTO) 18.5 % (2.0-9.0); NEUTROPHILS # (AUTO) 1.8 K/uL (1.8-7.7); RED BLOOD CELL COUNT(AUTO) 5.22 MIL/uL (4.50-5.90); RED CELL DISTRIBUTION WIDTH 14.7 % (11.5-14.5)
[2022-04-19 14:57] LABS: CALCIUM, TOTAL 9.4 mg/dL (8.8-10.5); CREATININE 3.48 mg/dL (0.60-1.30); POTASSIUM 3.6 mmol/L (3.5-5.1)
[2022-04-19 15:03] LABS: ALBUMIN 3.3 g/dL (3.4-5.0); BILIRUBIN,TOTAL 1.2 mg/dL (0.1-1.0); TOTAL PROTEIN, SERUM 8.1 g/dL (6.4-8.2)
[2022-04-19 15:04] LABS: D-DIMER 0.61 mg/L FEU (0.00-0.50); INR 1.1 (0.9-1.1); PROTHROMBIN TIME 11.4 SEC (9.4-11.6)
[2022-04-19 16:11] LABS: PLATELET COUNT (AUTO) 95 K/uL (150-450)
[2022-04-19 20:02] VITALS: BP 196/135
== END 2022-04-19 22:00 | disposition home or self-care (01) ==
LOC: EMS 14:06
DX: M79.605 Pain in left leg (principal); D69.6 Thrombocytopenia, unspecified; I12.9 Hypertensive chronic kidney disease with stage 1 through stage 4 chronic kidney disease, or unspecified chronic kidney disease; N18.9 Chronic kidney disease, unspecified; E80.6 Other disorders of bilirubin metabolism; R73.9 Hyperglycemia, unspecified; J44.9 Chronic obstructive pulmonary disease, unspecified; F32.A Depression, unspecified; F17.210 Nicotine dependence, cigarettes, uncomplicated; Z98.890 Other specified postprocedural states; Z88.0 Allergy status to penicillin
CPT/HCPCS: 71045; 80053; 83880; 84484; 85025; 85379; 85610; 85730; 93005; 93971; 99285; 36415-L1; 36415-TC